=== PATIENT | male | born 1965 | race Caucasian/White ===

== ENCOUNTER 2018-03-13 08:57 | Emergency (ER) | payer OTHER ==
--- NOTE | 2018-03-13 09:21 | UC ---
Respiratory Complaint HPI - HPI Summary HPI Summary: Patient presents to urgent care reporting 2-3 weeks of sinus congestion postnasal drip. Patient states is now settling a throat. Patient coughing up yellow-green sputum. Patient denies fevers but states has fatigue. Patient does have a slight expiratory wheeze. Patient is not inial compromise. Patient 's not smoke. 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 Pt denies SOB except with coughing. Pt has taken Alkaseltzer cough and cold with temp improvement Patient's visiting from [place] wanted better before he returns home. Patient's medications reviewed this visit. - History of Current Complaint Chief Complaint: UCRespiratory Stated Complaint: COUGH CONGESTION Time Seen by Provider: 03/13/18 09:20 Hx Obtained From: Patient Severity Initially: Mild Severity Currently: Mild Pain Intensity: 0 - Allergies/Home Medications Allergies/Adverse Reactions: Allergies Allergy/AdvReac Type Severity Reaction Status Date / Time alfalfa Allergy Congestion Verified 03/13/18 09:18 grape Allergy Anaphylatic Verified 03/13/18 09:18 Shock mold Allergy Congestion Verified 03/13/18 09:18 nut - unspecified Allergy Anaphylatic Verified 03/13/18 09:18 Shock raw vegetable Allergy Anaphylatic Verified 03/13/18 09:18 Shock environmental Allergy Congestion Uncoded 03/13/18 09:18 fresh fruits Allergy Anaphylatic Uncoded 03/13/18 09:18 Shock Home Medications: Home Medications Ascorbic Acid [Vitamin C] 1,000 mg PO DAILY 03/13/18 [History Confirmed 03/13/18 ] Doxylamine/Phenylep/Dm/Aspirin [Ana Laura-Gunnar Day-Night Tab Eff] 1 tab PO ONCE PRN 03/13/18 [History Confirmed 03/13/18] PMH/Surg Hx/FS Hx/Imm Hx Previously Healthy: Yes - Surgical History Surgical History: Yes Surgery Procedure, Year, and Place: T&A - Family History Known Family History: Positive: Non-Contributory - Social History Occupation: Employed Full-time Lives: With Family Alcohol Use: None Substance Use Type: None Smoking Status (MU): Never Smoked Tobacco Review of Systems All Other Systems Reviewed And Are Negative: Yes Constitutional: Positive: Fatigue ENT: Positive: Nasal Discharge, Sinus Congestion Respiratory: Positive: Shortness Of Breath, Cough Physical Exam - Summary Physical Exam Summary: Vital Signs Reviewed: Yes A+Ox3, no distress, intermittent cough Eyes: Conjunctiva Clear, KIRSTIN. EOM intact and full ENT: Hearing grossly normal TM x 2 clear, sinus congestion, + PND mmoist, uvula midline, no exudate, no erythema Neck: Positive: Supple Respiratory: Positive: No respiratory distress, No accessory muscle use + speaking full sentences, occasionally interrupted with cough scattered end exp wheeze, no retractions Cardiovascular: RRR nl s1, s2 no m/r CBT <2 sec abd soft + BS nt/nd no guarding, no distension Musculoskeletal Exam: PRESTON x 4 without difficulty Strength Intact, ROM Intact Neurological: Positive: Alert, + sensation throughout Psychological: Positive: Normal Response To Family Skin: Positive: no rash, no ecchymosis Vital Signs: Initial Vital Signs Temp 97.7 F 03/13/18 09:10 Pulse 64 03/13/18 09:10 Resp 20 03/13/18 09:10 BP 149/94 03/13/18 09:10 Pulse Ox 97 03/13/18 09:10 Diagnostic Evaluation - Laboratory O2 Sat by Pulse Oximetry: 97 Respiratory Course/Dx - Course Course Of Treatment: Pt presents with 2-3 weeks of sinus congestion that has now settled in chest.Pt states coughing yellow sputum. no lung tx, tobacco use. Pt with end exp wheeze, stable VS - BP slightly elevated -recommend PCP recheck. Will Rx amox, flonase, albuterol. hydrate. motrin/apap. secretion precaution. pt states has poor insurance converage - declined CXR today. strict return precautions - Differential Dx/Diagnosis Provider Diagnosis: Acute bronchitis Discharge - Sign-Out/Discharge Documenting (check all that apply): Patient Departure All imaging exams completed and their final reports reviewed: No Studies - Discharge Plan Condition: Stable Disposition: HOME Prescriptions: Albuterol HFA INHALER* [Ventolin HFA Inhaler*] 2 puff INH Q4H PRN #1 mdi PRN Reason: wheeze Amoxicillin PO (*) [Amoxicillin 500 MG CAP*] 500 mg PO Q12H #20 cap Fluticasone NASAL SPRAY 50MCG* [Flonase NASAL SPRAY 50MCG*] 2 spray BOTH NARES DAILY #1 btl Patient Education Materials: Acute Bronchitis (ED), Rhinosinusitis (ED) Referrals: No Primary Care Phys,NOPCP [Primary Care Provider] - Additional Instructions: - Take antibiotics exactly as prescribed until gone - Use your albuterol puffer - 2 puffs every 4 hours for the next 2 days - then as needed - Stay well hydrated - avoid excess caffeine and all alcohol - Eat regular, healthy meals - Humidify the air in the room where you sleep - boil water, run a hot steam shower, vaporizer, cups of water by heat register - Okay to take over the counter decongestant and cough medication - These infections are spread by secretions - do NOT share eating or drinking utensils - clean items you share with other people such as cell phones, computer mouse, TV remote, computer tablets,etc.. Once you have been antibiotics for 2 days, change your toothbrush and your pillowcase. -Contact your doctor to arrange a follow-up appointment this week. Call your doctor, return here or go to the emergency department with any questions or concerns - Billing Disposition and Condition Condition: STABLE Disposition: Home
== END 2018-03-13 09:52 | disposition home or self-care (01) ==
LOC: UCEAST 08:57
DX: J20.9 Acute bronchitis, unspecified (principal)
CPT/HCPCS: 99202; G0463